=== PATIENT | male | born 1960 | race Caucasian/White ===

== ENCOUNTER 2024-04-30 14:49 | Outpatient (CLI) | payer BC | END 2024-04-30 14:50 | disposition home or self-care (01) | LOC: CSHCT 14:49 | PROVIDERS: ATTEND Urology | DX: C61 Malignant neoplasm of prostate (principal); K42.9 Umbilical hernia without obstruction or gangrene; N40.0 Benign prostatic hyperplasia without lower urinary tract symptoms | CPT/HCPCS: 74178; 82565 ==